=== PATIENT | male | born 1970 | race Two or more races ===

== ENCOUNTER 2021-05-15 04:33 | Emergency (ER) | payer OTHER ==
[2021-05-15 04:52] VITALS: BP 158/100; PULSE 72; RESP 22; TEMP 97.9
== END 2021-05-15 05:57 | disposition home or self-care (01) ==
LOC: EC 04:33
DX: Z20.822 Contact with and (suspected) exposure to COVID-19 (principal)
CPT/HCPCS: 87635; 99499